=== PATIENT | female | born 1990 | race Caucasian/White ===

== ENCOUNTER 2021-08-22 09:00 | Outpatient (CLI) | payer OTHER | END 2021-08-22 09:30 | disposition home or self-care (01) | LOC: PPH VACUNA 09:00 | PROVIDERS: ATTEND Emergency Medicine Pediatric Emergency Medicine | DX: Z23 Encounter for immunization (principal) ==

== ENCOUNTER 2022-06-12 15:00 | Inpatient (IN) | payer OTHER ==
[~2022-06-12] VITALS: Ht 157.5 cm; Wt 71.7 kg
[2022-06-21] MEDS ORDERED: PRENATAL + DHA1 EAC1 (05:42)
== END 2022-06-23 12:13 | disposition home or self-care (01) | DRG 807 ==
LOC: OB/GYN 06-21 04:43 → LDR 06-21 04:43 → OB/GYN 06-21 08:57
PROVIDERS: ADMIT Obstetrics & Gynecology; ATTEND Obstetrics & Gynecology
PROC: 10E0XZZ Delivery of Products of Conception, External Approach (ICD-10-PCS; principal; 2022-06-21)
PROC: 0UQG7ZZ Repair Vagina, Via Natural or Artificial Opening (ICD-10-PCS; 2022-06-21)
PROC: 4A1HXCZ Monitoring of Products of Conception, Cardiac Rate, External Approach (ICD-10-PCS; 2022-06-21)
DX: O71.4 Obstetric high vaginal laceration alone (principal); Z37.0 Single live birth; Z3A.38 38 weeks gestation of pregnancy; Z20.822 Contact with and (suspected) exposure to COVID-19